=== PATIENT | female | born 1995 | race Caucasian/White ===

== ENCOUNTER → 2017-08-08 | Outpatient (CLI) | payer BC ==
--- NOTE | 2017-08-08 15:22 | MAMMOGRAPHY REPORT ---
ULTRASOUND OF BOTH BREASTS: 08/08/2017 CLINICAL HISTORY: 22-year-old woman presents for workup after her provider palpated a lump in the 4:0 0 left breast on physical exam. No skin erythema or thickening. No nipple discharge. Family histor y of breast cancer = maternal great aunt and third cousins. COMPARISON: No prior exams were available for comparison. FINDINGS: The patient pointed out the lump in the 4:00 left breast, 1 cm from the nipple. On palpati on, there is a firm round 3 cm mobile mass. On ultrasound targeted in the 4:00 left breast, 1 cm fro m the nipple, there is an oval parallel circumscribed hypoechoic solid mass measuring 3.2 x 2.4 x 3.3 cm. 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 IMPRESSION: ACR BI-RADS CATEGORY 4: SUSPICIOUS - FOLLOW-UP RECOMMENDED Left breast ultrasound-guided core biopsy is recommended for a solid palpable 3.3 cm mass in the 4:00 axis. These results and recommendations were discussed with the patient and her mother at the time of the e xam. She tentatively scheduled the biopsy prior to leaving our department. Margi Bustillo M.D. ay/:08/08/2017 14:26:30 Sofa Inspector: Dr. Margi Bustillo, [facility] letter sent: Abnormal 4/5 BI-RADS Code: ACR BI-RADS Category 4: Suspicious
== END | disposition home or self-care (01) ==
LOC: C.MAMM 13:54
PROVIDERS: ATTEND Physician Assistant Medical
DX: N63.23 Unspecified lump in the left breast, lower outer quadrant (principal)

== ENCOUNTER → 2017-08-11 | Outpatient (CLI) | payer BC ==
--- NOTE | 2017-08-11 08:48 | Discharge Instructions ---
Discharge Instructions Procedure Procedure Date: August 11, 2017. Reason for visit: Left Mass. Discharge Discharge Date: August 11, 2017. Discharge Diagnosis: status post breast biopsy Instructions Activity Recommendations: Additional Limitations (see below) Return to School/Work: no limitations Recommended Home Diet: No Limitations Provider Instructions: ACTIVITY RECOMMENDATIONS: * No lifting, pushing, pulling or exercising the affected side for three days. RETURN TO SCHOOL/WORK: * You may return to work/school after the procedure, but do not perform any strenuous activities for 24 to 48 hours. MEDICATIONS: * Tylenol (two 325 mg) every four to six hours if needed for mild pain (if not allergic to Tylenol). DIET: * Resume previous diet. SPECIAL CARE INSTRUCTIONS: * Keep biopsy site dry for 24 hours. May shower after 24 hours, but do not soak (bathe) incision. * May remove Tegaderm (plastic patch) tomorrow AFTER showering. * Leave the steri-strips on for one week. Allow the steri-strips to fall off by themselves. If not off after one week, you may remove them. You may place a Bandaid crosswise over the strips, if desired. * Apply ice 10 minutes on and 10 minutes off as needed. * Wear a bra at bedtime to sleep more comfortably for 2-3 days. * Your referring physician should have the results after approximately 5 to 7 business days. * Call for unusual bleeding, fever, drainage, etc or if you have any questions call the breast center at . FOLLOW UP VISIT: Follow-up with Referring Physician as scheduled. Yudith Sanabria Recommendations: Call your doctor if: * Temperature above 101 degrees * Pain not relieved by pain medicine ordered * There is increased drainage or redness from any incision * You have any unanswered questions or concerns. Your Doctors Instructions noted above were prepared by provider Guillermina Berg. Patient Signature Section: Patient Instructions Signature Page Bryanna Garcia Patient (or Guardian) Signature/Date: I have read and understand the instructions given to me by my caregivers. Caregiver/RN/Doctor Signature/Date: The above-named patient and/or guardian has received patient instructions on this date. + Original Patient Signature Page (only) stays with chart. Please make copy for patient.
--- NOTE | 2017-08-11 14:18 | MAMMOGRAPHY REPORT ---
ULTRASOUND GUIDED BIOPSY LEFT BREAST: 08/11/2017 CLINICAL HISTORY: Left 4:00 breast mass. PATIENT CONSENT: The procedure, risks and benefits were discussed with the patient and informed writt en consent was obtained. A timeout was performed immediately prior to the procedure. PROCEDURE DESCRIPTION: With ultrasound guidance, aseptic technique, and lidocaine as the local anesth etic (1% lidocaine to anesthetize the skin and 1% lidocaine with epinephrine to anesthetize the deepe r tissues), the mass of concern in the left 4:00 breast was sampled 4 times with a 14-gauge Achieve b iopsy needle. Immediately thereafter, with ultrasound guidance, aseptic technique, and lidocaine as the local anesthetic, a metallic localizer clip was placed centrally in the mass. Direct pressure w as applied to the site immediately post procedure and hemostasis was achieved. The patient tolerated the procedure without complication. She was given wound care instructions. The specimens were sent t o pathology for analysis. COMPARISON: Comparison is made to exam dated: 08/08/2017 ultrasound - [facility]. IMPRESSION: ULTRASOUND GUIDED BIOPSY Ultrasound-guided core needle biopsy of the left 4:00 breast mass, with clip placement. The patient will receive pathology results from her referring provider. Guillermina Berg M.D. /:08/11/2017 08:49:05 [employer] Representatives: Elly MOORE)([place]), [facility]
== END | disposition home or self-care (01) ==
LOC: C.MAMM 08:17
PROVIDERS: ATTEND Physician Assistant Medical
DX: N63.20 Unspecified lump in the left breast, unspecified quadrant (principal)